=== PATIENT | male | born 1960 | race Two or more races ===

== ENCOUNTER 2023-09-18 12:40 | Emergency (ER) | payer BC, OTHER ==
[~2023-09-18] VITALS: Ht 165.1 cm; Wt 75.0 kg
[2023-09-18 12:58] VITALS: BP 142/75; PULSE 66; RESP 16; O2SAT 95
== END 2023-09-18 13:02 | disposition left against medical advice (07) ==
LOC: ER 12:40
DX: M54.89 Other dorsalgia (principal); Z53.21 Procedure and treatment not carried out due to patient leaving prior to being seen by health care provider